=== PATIENT | female | born 1965 | race Caucasian/White ===

== ENCOUNTER → 2017-01-16 | Outpatient (CLI) | payer BC ==
--- NOTE | 2017-01-17 14:23 | MM ---
Reason for exam: screening (asymptomatic). Last mammogram was performed 1 year and 6 months ago. History: Patient is nulliparous. Family history of premenopausal breast cancer in mother at age 32. Implants in both breasts, 2013. Physical Findings: A clinical breast exam by your physician is recommended on an annual basis and results should be correlated with mammographic findings. MG Screening Mammo Implant/CAD Bilateral CC and MLO view(s) were taken. ID view(s) were taken of the left breast. Prior study comparison: July 08, 2015, bilateral MG screening mammo implant/CAD. July 06, 2014, bilateral MG screening mammo w CAD. June 05, 2012, bilateral digital screening mammo w/CAD. The breast tissue is heterogeneously dense. This may lower the sensitivity of mammography. Finding: There are typically benign skin calcifications in the lower inner quadrant of the left breast. No significant changes in finding since July 08, 2015, July 06, 2014, and June 05, 2012. ASSESSMENT: Benign, BI-RAD 2 RECOMMENDATION: Routine screening mammogram of both breasts in 1 year.
== END ==
LOC: RADMAMWWP 06:53
PROVIDERS: ATTEND Obstetrics & Gynecology
DX: Z12.31 Encounter for screening mammogram for malignant neoplasm of breast (principal)

== ENCOUNTER → 2018-03-06 | Outpatient (CLI) | payer BC ==
--- NOTE | 2018-03-10 08:27 | MM ---
Reason for exam: screening (asymptomatic). Last mammogram was performed 1 year and 2 months ago. History: Patient history of other cancer and is nulliparous. Family history of premenopausal breast cancer in mother at age 32. Implants in both breasts, 2013. Physical Findings: A clinical breast exam by your physician is recommended on an annual basis and results should be correlated with mammographic findings. MG 3D Screen Mammo Imp/Cad Bilateral CC, MLO, and ID view(s) were taken. Prior study comparison: January 16, 2017, bilateral MG screening mammo implant/CAD. July 08, 2015, bilateral MG screening mammo implant/CAD. The breast tissue is heterogeneously dense. This may lower the sensitivity of mammography. Finding: There is a 11 mm circumscribed oval mass in the outer quadrant, middle position of the right breast. There is a chronic nodularity in the left breast. Subpectoral implants x 2. New finding since January 16, 2017 and July 08, 2015. ASSESSMENT: Incomplete: need additional imaging evaluation, BI-RAD 0 RECOMMENDATION: Ultrasound of the right breast. [facility] will attempt to contact patient to return for ultrasound.
== END | disposition home or self-care (01) ==
LOC: RADMAMWWP 07:30
PROVIDERS: ATTEND Obstetrics & Gynecology
DX: Z12.31 Encounter for screening mammogram for malignant neoplasm of breast (principal)
CPT/HCPCS: 77063; 77067

== ENCOUNTER → 2018-03-13 | Outpatient (CLI) | payer BC ==
--- NOTE | 2018-03-13 08:11 | USB ---
Reason for exam: additional evaluation requested from abnormal screening. History: Patient history of other cancer and is nulliparous. Family history of premenopausal breast cancer in mother at age 32. Implants in both breasts, 2013. Physical Findings: Nurse did not find any significant physical abnormalities on exam. US Breast Workup Limited RT Right limited breast ultrasound including focal area of concern, retroareolar and axilla demonstrates a 1.2 x 0.4 x 1.1cm oval, cystic lesion at 9 o'clock and a 1.0 x 0.9 x 0.5cm mixed cluster at 10 o'clock. These results were verbally communicated with the patient and result sheet given to the patient on 03/13/18. ASSESSMENT: Benign, BI-RAD 2 RECOMMENDATION: Return to routine screening mammogram schedule for both breasts.
== END | disposition home or self-care (01) ==
LOC: RADUSWWP 06:43
PROVIDERS: ATTEND Obstetrics & Gynecology
DX: R92.2 Inconclusive mammogram (principal)

== ENCOUNTER → 2019-05-11 | Outpatient (CLI) | payer BC ==
--- NOTE | 2019-05-12 15:24 | MM ---
Reason for exam: screening (asymptomatic). Last mammogram was performed 1 year and 2 months ago. History: Patient history of other cancer and is nulliparous. Family history of premenopausal breast cancer in mother at age 32. Patient had thyroid cancer. Implants in both breasts, 2012. Took hormonal contraceptives for 15 years. Physical Findings: A clinical breast exam by your physician is recommended on an annual basis and results should be correlated with mammographic findings. MG 3D Screen Mammo Imp/Cad Bilateral CC and MLO view(s) were taken. Prior study comparison: March 06, 2018, bilateral MG 3d screen mammo imp/cad. January 16, 2017, bilateral MG screening mammo implant/CAD. The breast tissue is heterogeneously dense. This may lower the sensitivity of mammography. There is a stable right upper outer quadrant middle depth mass that was worked up in 2018 with us and is known to be a cyst. Bilateral retropecteral silicon implants are noted. ASSESSMENT: Benign, BI-RAD 2 RECOMMENDATION: Routine screening mammogram of both breasts in 1 year.
== END | disposition home or self-care (01) ==
LOC: RADMAMWWP 06:57
PROVIDERS: ATTEND Obstetrics & Gynecology
DX: Z12.31 Encounter for screening mammogram for malignant neoplasm of breast (principal); Z80.3 Family history of malignant neoplasm of breast
CPT/HCPCS: 77063; 77067

== ENCOUNTER 2021-06-01 15:50 | Emergency (ER) | payer BC ==
[2021-06-01] MEDS ORDERED: KETOROLAC 15 MG/ML 1 ML VIAL IM STA (16:33)
--- NOTE | 2021-06-01 17:08 | ED ---
Abdominal Pain HPI - General Chief Complaint: Abdominal Pain Stated Complaint: Hernia Time Seen by Provider: 06/01/21 16:10 Source: patient Mode of arrival: ambulatory Limitations: no limitations - History of Present Illness Initial Comments: 56-year-old female presents to emergency Department with a chief complaint of a hernia. Patient reports is an umbilical hernia which she has had for over a year. Patient reports it was otherwise asymptomatic and she has been able to reduce it on her own. States now it is protruding since earlier today after she began to strain herself and she is not able to push it back. She denies any nausea vomiting diarrhea constipation. She reports tenderness when the region is palpated. Pain alleviated at rest. - Related Data Allergies Allergy/AdvReac Type Severity Reaction Status Date / Time No Known Allergies Allergy Verified 06/01/21 16:08 Review of Systems ROS Statement: Those systems with pertinent positive or pertinent negative responses have been documented in the HPI. ROS Other: All systems not noted in ROS Statement are negative. Past Medical History Past Medical History: Cancer Additional Past Medical History / Comment(s): thryroid cancer History of Any Multi-Drug Resistant Organisms: None Reported Additional Past Surgical History / Comment(s): cancer removal cervix Smoking Status: Current every day smoker Past Alcohol Use History: None Reported Past Drug Use History: None Reported General Exam Limitations: no limitations General appearance: alert, in no apparent distress Head exam: Present: atraumatic, normocephalic, normal inspection Eye exam: Present: normal appearance, PERRL, EOMI Pupils: Present: normal accommodation ENT exam: Present: normal exam, normal oropharynx, mucous membranes moist, TM's normal bilaterally, normal external ear exam Neck exam: Present: normal inspection, full ROM Respiratory exam: Present: normal lung sounds bilaterally. Absent: respiratory distress Cardiovascular Exam: Present: regular rate, normal rhythm, normal heart sounds. Absent: systolic murmur GI/Abdominal exam: Present: soft, tenderness (Umbilical hernia). Absent: distended, guarding, rebound, rigid Extremities exam: Present: normal inspection, full ROM, normal capillary refill. Absent: tenderness Back exam: Present: normal inspection, full ROM Neurological exam: Present: alert, oriented X3 Psychiatric exam: Present: normal affect, normal mood Skin exam: Present: warm, dry, intact, normal color Course Vital Signs 06/01/21 06/01/21 16:05 17:17 Temperature 98.4 F 98.2 F Pulse Rate 65 62 Respiratory 18 16 Rate Blood Pressure 141/81 136/78 O2 Sat by Pulse 98 97 Oximetry Medical Decision Making - Medical Decision Making 56-year-old female presents emergency Department with a chief complaint of an umbilical hernia. On physical examination, she has a small umbilical hernia. I applied ice compress, give her analgesics, placed the patient in Trendelenburg. I was able to reduce the hernia without difficulty. He does not have any nausea or vomiting diarrhea or constipation. She is passing gas. I gave her contact information for general surgeon. Case discussed with physician. Disposition Clinical Impression: Umbilical hernia Disposition: HOME SELF-CARE Condition: Stable Instructions (If sedation given, give patient instructions): Umbilical Hernia (ED) Additional Instructions: Follow-up with a general surgeon. Return to emergency department if symptoms worsen. Is patient prescribed a controlled substance at d/c from ED?: No Referrals: Filemon Orellana MD [Primary Care Provider] - 1-2 days Artie Corona MD [Medical Doctor] - 1-2 days Time of Disposition: 17:07
[2021-06-01 17:18] VITALS: BP 136/78; PULSE 62; RESP 16; TEMP 98.2
== END 2021-06-01 17:17 | disposition home or self-care (01) ==
LOC: EC 15:50
DX: K42.9 Umbilical hernia without obstruction or gangrene (principal); F17.200 Nicotine dependence, unspecified, uncomplicated
CPT/HCPCS: 99283; 96372; J1885

== ENCOUNTER → 2021-07-18 | Outpatient (CLI) | payer BC ==
[2021-07-18 23:12] LABS: Basophils # (A) 0.06 X 10*3/uL (0.00-0.10); Basophils % (A) 0.7 %; Eosinophils # (A) 0.01 X 10*3/uL (0.04-0.35); Eosinophils % (A) 0.1 %; HCT 43.5 % (37.2-46.3); HGB 14.2 g/dL (12.0-15.0); Lymphocytes # (A) 1.85 X 10*3/uL (0.90-5.00); Lymphocytes % (A) 20.6 %; MCH 33.6 pg (27.0-32.0); MCHC 32.6 g/dL (32.0-37.0); MCV 102.8 fL (80.0-97.0); Mean Platelet Volume 10.6 fL (9.5-12.2); Monocytes # (A) 0.64 X 10*3/uL (0.20-1.00); Monocytes % (A) 7.1 %; Neutrophils % (A) 71.3 %; Platelet Count 263 X 10*3/uL (140-440); RBC 4.23 X 10*6/uL (4.10-5.20); RDW 13.1 % (11.5-14.5); WBC 8.98 X 10*3/uL (4.50-10.00)
== END | disposition home or self-care (01) ==
LOC: LABWHC1 15:55
PROVIDERS: ATTEND Obstetrics & Gynecology
DX: Z01.812 Encounter for preprocedural laboratory examination (principal); N87.1 Moderate cervical dysplasia
CPT/HCPCS: 36415; 85025

== ENCOUNTER 2021-07-25 08:29 | Day surgery (SDC) | payer BC ==
[2021-07-21 09:51] VITALS: BMI 27.3
--- NOTE | 2021-07-24 11:47 | HP ---
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 Cervical biopsies were done for history of abnormal Pap smear. She is scheduled to undergo cervical cold knife cone biopsy on 07/25/2021. ALLERGIES: ASPIRIN. MEDICATIONS: 1. Ibuprofen 800 mg p.r.n. 2. Synthroid 200 mcg daily. 3. Zoloft 150 mg daily. PAST MEDICAL HISTORY: History of abnormal Pap smear, anxiety, irritable bowel syndrome, osteoarthritis, thyroid cancer, vulvar cancer. PAST SURGICAL HISTORY: Bilateral breast augmentation in 2012, hysteroscopy, NovaSure ablation 2008, laser ablation of vulvar cancer 2008, thyroidectomy 2005, tubal ligation 2008. SOCIAL HISTORY: She is single. She smokes one pack of cigarettes per day. FAMILY HISTORY: Breast cancer in her mother. REVIEW OF SYSTEMS: Negative for fevers, chills, nausea, vomiting, headaches, visual changes, abdominal pain, bowel changes, dysuria, hematuria. Positive for irregular menses, depression and anxiety. PHYSICAL EXAMINATION: This is a pleasant female appearing her stated age. HEENT exam is unremarkable. She is status post thyroidectomy. No thyroid abnormalities palpable. The lungs are clear to auscultation bilaterally and her heart is of regular rate and rhythm. On breast exam, she has no palpable lesions or axillary lymphadenopathy. The abdomen is slim, soft and nontender with no rebound and no guarding. On pelvic examination, she has normal female external genitalia without lesions or irritation. On speculum examination, the cervix appears grossly normal with no visible lesions. On bimanual examination, the uterus is small, freely mobile and in the midline with no adnexal abnormalities palpable. ASSESSMENT: [id number]-old woman with high-grade LUCIUS on recent cervical biopsies. She is scheduled to undergo cervical cold knife cone biopsy for both diagnosis and treatment. This procedure, anticipated recovery and risks have been reviewed with the patient in the office. Risks include but are not limited to bleeding, transfusion, infection, injury to bowel, bladder, uterus or other structures. There can be incomplete resection of the tissue abnormality. The patient understands these risks and consent is obtained. She is scheduled for cervical cold knife cone biopsy on 07/25/2021. MMODL / IJN: [id number] /
[~2021-07-25 08:29] MED LIST: DEXAMETHASONE SOD PHOSPHATE 4 MG/ML 1 ML VIAL IV ONE; HYDROmorphone 0.5 MG/0.5 ML SYRINGE IVP PRN; LACTATED RINGERS 1,000 ML IV SCH; MIDAZOLAM 2 MG/2 ML VIAL IV PRN; ONDANSETRON 4 MG/2 ML VIAL IVP ONE; Pre Op ABX Message 1 EACH MISC MISCELLANE ONE; SCOPOLAMINE 1.5MG/72HR PATCH TRANSDERM ONE
[2021-07-25] MEDS ORDERED: LIDOCAINE 1% (10MG/ML) FOR IV START INTRADERMA ONE (09:12)
[2021-07-25] MEDS ORDERED: PROPOFOL 10 MG/ML 20 ML VIAL IV ONE (09:30)
[2021-07-25] MEDS ORDERED: KETOROLAC 15 MG/ML 1 ML VIAL ONE (09:30)
[2021-07-25] MEDS ORDERED: fentaNYL (PF) 50 MCG/ML 2 ML AMP ONE (09:30)
[2021-07-25] MEDS ORDERED: MIDAZOLAM 2 MG/2 ML VIAL ONE (09:30)
[2021-07-25] MEDS ORDERED: LIDOCAINE 1% INJ 10MG/ML (20 ML MDV) ONE (09:30)
[2021-07-25] MEDS ORDERED: FERRIC SUBSULFATE (MONSELS) JAR TOPICAL ONE (09:51)
[2021-07-25] MEDS ORDERED: IODINE/POTASS IOD (LUGOLS) BOTTLE TOPICAL ONE (09:52)
[2021-07-25] MEDS ORDERED: LIDOCAINE 1%-EPI 1:100,000 20 ML VIAL SUBMUCOSAL ONE (09:52)
[2021-07-25 10:19] VITALS: TEMP 97.2
--- NOTE | 2021-07-25 10:39 | P.OP ---
Date of Procedure: 07/25/21 Preoperative Diagnosis: DEEPAK-2 Postoperative Diagnosis: DEEPAK-2 Procedure(s) Performed: Cervical cold knife cone biopsy Anesthesia: MAC Surgeon: Anushka Eagle Estimated Blood Loss (ml): 5 IV fluids (ml): 400 Urine output (ml): 25 Pathology: other (Cervical cone biopsy) Condition: stable Disposition: PACU Indications for Procedure: Persistent DEEPAK-2 Operative Findings: Grossly normal-appearing cervix with no visible lesions. Description of Procedure: After the patient was met in the preoperative holding area and all questions were answered she was taken to the operating room where anesthetic was administered without incident. She was in positioned, prepped and draped in the dorsal lithotomy position. Bladder was drained for 25 mL of clear urine. Weighted speculum was placed in the vagina and the cervix was visualized. Cervix was grasped anteriorly with a single-tooth tenaculum. Paracervical block with lidocaine plus epinephrine was placed. Stay sutures with 0 Vicryl were placed at the 3 and 9 o'clock position. Lugol solution was applied to the cervix to delineate the transformation zone. 11 blade scalpel was utilized to circumferentially incise the cervix lateral to the transformation zone. This was to a depth of 1 cm. Specimen was grasped with an Allis clamp and placed on traction and the specimen was then amputated at the base and a coned inward fashion. Specimen was passed off. Minimal bleeding was noted. Ball electrocautery was utilized to cauterize the edges of the biopsy site as well as scant bleeding at the base of the biopsy. Surgicel powder was then placed in the base of the biopsy. Area was observed for several minutes and no active bleeding was noted. Stay sutures were removed. Speculum was removed. All counts reported to me as correct. The patient was awoken from anesthetic and transported to the recovery room in good condition.
[2021-07-25 12:05] VITALS: BP 127/82; PULSE 66; RESP 16
== END 2021-07-25 12:31 | disposition home or self-care (01) ==
LOC: OR 08:29
PROVIDERS: ATTEND Obstetrics & Gynecology
DX: F17.210 Nicotine dependence, cigarettes, uncomplicated (principal); M19.90 Unspecified osteoarthritis, unspecified site; K21.9 Gastro-esophageal reflux disease without esophagitis; E07.9 Disorder of thyroid, unspecified; Z85.41 Personal history of malignant neoplasm of cervix uteri; Z79.890 Hormone replacement therapy; Z79.899 Other long term (current) drug therapy
CPT/HCPCS: 81025; 88307; 57520; J2250; J1100; J2405; J2001; J3010; J1885; J2704

== ENCOUNTER → 2021-08-23 | Outpatient (CLI) | payer BC ==
--- NOTE | 2021-08-24 09:42 | MM ---
Reason for exam: screening (asymptomatic). Last mammogram was performed 2 years and 3 months ago. History: Patient has history of endometrial cancer at age 31, has history of other cancer at age 26, and is nulliparous. Family history of premenopausal breast cancer in mother at age 32. Implants in both breasts, 2013. Took hormonal contraceptives for 15 years. Physical Findings: A clinical breast exam by your physician is recommended on an annual basis and results should be correlated with mammographic findings. MG 3D Screen Mammo Imp/Cad Bilateral CC, MLO, and ID view(s) were taken. Prior study comparison: May 11, 2019, bilateral MG 3d screen mammo imp/cad. March 06, 2018, bilateral MG 3d screen mammo imp/cad. The breast tissue is heterogeneously dense. This may lower the sensitivity of mammography. Stable benign calcifications. There is no discrete abnormality. No significant changes when compared with prior studies. ASSESSMENT: Benign, BI-RAD 2 RECOMMENDATION: Routine screening mammogram of both breasts in 1 year.
== END | disposition home or self-care (01) ==
LOC: RADMAMWWP 15:04
PROVIDERS: ATTEND Obstetrics & Gynecology
DX: Z12.31 Encounter for screening mammogram for malignant neoplasm of breast (principal); Z80.3 Family history of malignant neoplasm of breast
CPT/HCPCS: 77063; 77067

== ENCOUNTER → 2022-12-11 | Outpatient (CLI) | payer BC ==
--- NOTE | 2022-12-13 09:19 | MM ---
Reason for Exam: Screening (asymptomatic). Last mammogram was performed 1 year(s) and 3 month(s) ago. Patient History: Menarche at age 13. Patient has no children. Left ovary removed at age 44. Other cancer, age 26. Endometrial cancer, age 31. Patient used Hormonal Contraceptives for 15 years. 2012, Bilateral Implants. Mother had breast cancer, age 32. Risk Values: Elly 5 year model risk: 2.4%. Prior Study Comparison: 03/06/2018 Bilateral Screening Mammogram, [facility]. 05/11/2019 Bilateral Screening Mammogram, [facility]. 08/23/2021 Bilateral Screening Mammogram, [facility]. Tissue Density: The breast tissue is heterogeneously dense. This may lower the sensitivity of mammography. Findings: Analyzed By CAD. Bilateral breast prostheses are present. On coronal tissue pattern appears symmetrical and stable. No significant interval changes are evident. No suspicious groups of microcalcifications, spiculated or lobular masses, architectural distortion or other secondary signs of malignancy are mammographically apparent. Overall Assessment: Benign, BI-RAD 2 Management: Screening Mammogram of both breasts in 1 year. A negative mammogram report should not preclude additional follow up of suspicious palpable abnormalities. Patient should continue monthly self breast exam. A clinical breast exam by your physician is recommended on an annual basis and results should be correlated with mammographic findings. Electronically signed and approved by: Jarod Rayo D.O. Radiologis
== END | disposition home or self-care (01) ==
LOC: RADMAMWWP 15:37
PROVIDERS: ATTEND Obstetrics & Gynecology
DX: Z12.31 Encounter for screening mammogram for malignant neoplasm of breast (principal); Z80.3 Family history of malignant neoplasm of breast
CPT/HCPCS: 77063; 77067

== ENCOUNTER → 2024-01-20 | Outpatient (CLI) | payer BC ==
--- NOTE | 2024-01-22 18:06 | MM ---
Reason for Exam: Screening (asymptomatic). Last mammogram was performed 1 year(s) and 2 month(s) ago. Patient History: Menarche at age 13. Patient has no children. Left ovary removed at age 44. Right ovary removed at age 58. Hysterectomy at age 58. Other cancer, age 26. Endometrial cancer, age 31. Patient used Hormonal Contraceptives for 15 years. 2012, Bilateral Implants. Mother had breast cancer, age 32. Risk Values: Elly 5 year model risk: 2.5%. NCI Lifetime model risk: 14.9%. Prior Study Comparison: 05/11/2019 Bilateral Screening Mammogram, [facility]. 08/23/2021 Bilateral Screening Mammogram, [facility]. 12/11/2022 Bilateral MG 3D screen mammo imp/cad., [facility]. Tissue Density: The breasts are heterogeneously dense, which may obscure small masses. Findings: Analyzed By CAD. Retropectoral bilateral silicone implants. Areas of asymmetric density are unchanged. Regional calcifications medial left breast are also unchanged. There is no suspicious group of microcalcifications or new suspicious mass in either breast. Overall Assessment: Benign, BI-RAD 2 Management: Screening Mammogram of both breasts in 1 year. . Patient should continue monthly self-breast exams. A clinical breast exam by your physician is recommended on an annual basis. This exam should not preclude additional follow-up of suspicious palpable abnormalities. Note on Elly scores and lifetime risk: 1. A Elly score greater than 3% is considered moderate risk. If this is the case, consider specialist referral to assess eligibility for a risk reducing agent. 2. If overall lifetime risk for the development of breast cancer is 20% or higher, the patient may qualify for future screening with alternating mammogram and breast MRI. Electronically signed and approved by: Joann Armando M.D. Radiologist
== END | disposition home or self-care (01) ==
LOC: RADMAMWWP 15:26
PROVIDERS: ATTEND Obstetrics & Gynecology
DX: Z12.31 Encounter for screening mammogram for malignant neoplasm of breast (principal); Z80.3 Family history of malignant neoplasm of breast
CPT/HCPCS: 77067

== ENCOUNTER 2024-09-21 08:58 | Emergency (ER) | payer BC ==
--- NOTE | 2024-09-21 09:13 | ED ---
Abdominal Pain HPI - General Source: patient, RN notes reviewed Mode of arrival: ambulatory Limitations: no limitations <Marietta Ariza - Last Filed: 09/21/24 09:12> - General Source: patient, RN notes reviewed Mode of arrival: ambulatory Limitations: no limitations <Blaze Paige - Last Filed: 09/22/24 20:50> - General Stated Complaint: Abdominal Pain Time Seen by Provider: 09/21/24 09:12 - History of Present Illness Initial Comments: 59-year-old female presenting to the ER for evaluation of abdominal pain. Patient states for the past month she has been having a gnawing right lower abdominal pain. She admits to recent diarrhea. Denies any nausea, vomiting, urinary complaints, vaginal bleeding or fevers. Patient denies any history of bowel surgeries or resections. (Marietta Ariza) 59-year-old female presents emergency Telugu complaint of right flank pain, right upper quadrant pain. Patient states that she has had minimal nausea without vomiting no urinary symptoms patient denies chest pain shortness of breath. (Blaze Paige) - Related Data Home Medications Medication Instructions Recorded Confirmed Levothyroxine Sodium [Synthroid] 200 mcg PO MOTUTHFRSA 07/21/21 07/25/21 Levothyroxine Sodium [Synthroid] 300 mcg PO SUWE 07/21/21 07/25/21 Multivitamins, Thera [Multivitamin 1 tab PO DAILY 07/21/21 07/25/21 (formulary)] Omeprazole [PriLOSEC] 10 mg PO QAM 07/21/21 07/25/21 Sertraline HCl [Zoloft] 100 mg PO QAM 07/21/21 07/25/21 Previous Rx's Medication Instructions Recorded Ketorolac [Toradol] 10 mg PO Q8HR #15 tab 09/21/24 Ondansetron Odt [Zofran Odt] 4 mg PO Q8HR PRN #10 tab 09/21/24 Allergies Allergy/AdvReac Type Severity Reaction Status Date / Time No Known Allergies Allergy Verified 09/21/24 09:53 Review of Systems ROS Other: All systems not noted in ROS Statement are negative. <Marietta Ariza - Last Filed: 09/21/24 09:12> ROS Other: All systems not noted in ROS Statement are negative. <Blaze Paige - Last Filed: 09/22/24 20:50> ROS Statement: Those systems with pertinent positive or pertinent negative responses have been documented in the HPI. Past Medical History Past Medical History: Cancer, GERD/Reflux, Osteoarthritis (OA) Additional Past Medical History / Comment(s): Hx Thryroid Cancer 2006. Hx Cervical Cancer. History of Any Multi-Drug Resistant Organisms: None Reported Additional Past Surgical History / Comment(s): Cancer removal from cervix, thyroidectomy. Past Anesthesia/Blood Transfusion Reactions: No Reported Reaction, Postoperative Nausea & Vomiting (PONV) Past Psychological History: Anxiety Smoking Status: Current every day smoker Past Alcohol Use History: Rare Additional Past Alcohol Use History / Comment(s): Has been smoking for 30 years, 1 PPD. Past Drug Use History: None Reported - Past Family History Mother Family Medical History: No Reported History <Marietta Ariza - Last Filed: 09/21/24 09:12> General Exam <Marietta Ariza - Last Filed: 09/21/24 09:12> Limitations: no limitations General appearance: alert, in no apparent distress Head exam: Present: atraumatic, normocephalic, normal inspection Eye exam: Present: normal appearance, PERRL, EOMI. Absent: scleral icterus, conjunctival injection, periorbital swelling ENT exam: Present: normal exam, normal oropharynx, mucous membranes moist Neck exam: Present: normal inspection, full ROM. Absent: tenderness, meningismus, lymphadenopathy Respiratory exam: Present: normal lung sounds bilaterally. Absent: respiratory distress, wheezes, rales, rhonchi, stridor Cardiovascular Exam: Present: regular rate, normal rhythm, normal heart sounds. Absent: systolic murmur, diastolic murmur, rubs, gallop, clicks GI/Abdominal exam: Present: soft, normal bowel sounds. Absent: distended, tenderness, guarding, rebound, rigid <Blaze Paige - Last Filed: 09/22/24 20:50> - General Exam Comments Initial Comments: Visual Physical Exam Vital signs reviewed General: Well-appearing, nontoxic, no acute distress. Head: Normocephalic, atraumatic Eyes: PERRLA, EOMI ENT: Airway patent Chest: Nonlabored breathing Skin: No visual rash, normal skin tone Neuro: Alert and oriented 3 Musculoskeletal: No gross abnormalities (Marietta Ariza) Course Vital Signs 09/21/24 09:51 Temperature 98.0 F Pulse Rate 56 L Respiratory 22 Rate Blood Pressure 135/70 O2 Sat by Pulse 98 Oximetry Medical Decision Making <Marietta Ariza - Last Filed: 09/21/24 09:12> - Lab Data Result diagrams: 09/21/24 10:26 09/21/24 10:26 <Blaze Paige - Last Filed: 09/22/24 20:50> - Medical Decision Making I performed the quick note portion of this chart. Electronically signed by Marietta Ariza PA-C (Marietta Ariza) Was pt. sent in by a medical professional or institution (RENETTA Castillo, SINTERING PRESS OPERATOR, urgent care, hospital, or skilled nursing...) When possible be specific @ -No Did you speak to anyone other than the patient for history (EMS, parent, family, police, friend...)? What history was obtained from this source @ -No Did you review nursing and triage notes (agree or disagree)? Why? @ -I reviewed and agree with nursing and triage notes Were old charts reviewed (outside hosp., previous admission, EMS record, old EKG, old radiological studies, urgent care reports/EKG's, skilled nursing records)? Report findings @ -No old charts were reviewed Differential Diagnosis (chest pain, altered mental status, abdominal pain women, abdominal pain men, vaginal bleeding, weakness, fever, dyspnea, syncope, headache, dizziness, GI bleed, back pain, seizure, CVA, palpatations, mental health, musculoskeletal)? @ -Differential Abdominal Pain Women: Appendicitis, Cholecystitis, diverticulosis, ischemic bowel, pancreatitis, hepatitis, UTI, gastroenteritis, AAA, incarcerated hernia, bowel obstruction, constipation, inflammatory bowel, hepatitis, peptic ulcer disease, splenic infarction, perforated viscus, vulvitis, ovarian torsion, PID, kidney stone, placenta abruption, this is not meant to be an all-inclusive list EKG interpreted by me (3pts min.). @ -None X-rays interpreted by me (1pt min.). @ -None done CT interpreted by me (1pt min.). @ -CT abdomen pelvis showing large 1.8 cm renal pelvic stone U/S interpreted by me (1pt. min.). @ -Ultrasound shows evidence of gallstone in the fundus What testing was considered but not performed or refused? (CT, X-rays, U/S, labs)? Why? @ -None What meds were considered but not given or refused? Why? @ -None Did you discuss the management of the patient with other professionals (amirah fernando i.e. , PA, SINTERING PRESS OPERATOR, lab, RT, psych nurse, manager social media, copy center operator, teacher, credit compliance officer, casey saw operator)? Give summary @ -[Dr. sims on-call urology who discussed with the patient regarding outpat ient treatment Was smoking cessation discussed for >3mins.? @ -No Was critical care preformed (if so, how long)? @ -No Were there social determinants of health that impacted care today? How? (Homelessness, low income, unemployed, alcoholism, drug addiction, transportation, low edu. Level, literacy, decrease access to med. care, long term, rehab)? @ -No Was there de-escalation of care discussed even if they declined (Discuss DNR or withdrawal of care, Hospice)? DNR status @ -No What co-morbidities impacted this encounter? (DM, HTN, Smoking, COPD, CAD, Cancer, CVA, ARF, Chemo, Hep., AIDS, mental health diagnosis, sleep apnea, morbid obesity)? @ -None Was patient admitted / discharged? Hospital course, mention meds given and route, prescriptions, significant lab abnormalities, going to OR and other pertinent info. @ -Discharge patient will follow-up with Dr. Nuñez urologist to discuss outpatient percutaneous removal. Patient is discharged in stable condition return parameters paula. Undiagnosed new problem with uncertain prognosis? @ -No Drug Therapy requiring intensive monitoring for toxicity (Heparin, Nitro, Insulin, Cardizem)? @ -No Were any procedures done? @ -No Diagnosis/symptom? @ -Kidney stone, gallstone Acute, or Chronic, or Acute on Chronic? @ -Acute Uncomplicated (without systemic symptoms) or Complicated (systemic symptoms)? @ -Complicated Side effects of treatment? @ -No Exacerbation, Progression, or Severe Exacerbation? @ -No Poses a threat to life or bodily function? How? (Chest pain, USA, ND, pneumonia, PE, COPD, DKA, ARF, appy, cholecystitis, CVA, Diverticulitis, Homicidal, Suicidal, threat to staff... and all critical care pts) @ -No (Blaze Paige) - Lab Data Lab Results 09/21/24 09/21/24 09/21/24 Range/Units 10:26 10:26 10:26 WBC 10.1 (3.8-10.6) k/uL RBC 4.70 (3.80-5.40) m/uL Hgb 14.8 (11.4-16.0) gm/dL Hct 45.2 (34.0-46.0) % MCV 96.2 (80.0-100.0) fL MCH 31.5 (25.0-35.0) pg MCHC 32.7 (31.0-37.0) g/dL RDW 13.1 (11.5-15.5) % Plt Count 211 (150-450) k/uL MPV 7.7 Neutrophils % 84 % Lymphocytes % 11 % Monocytes % 3 % Eosinophils % 1 % Basophils % 0 % Neutrophils # 8.5 H (1.3-7.7) k/uL Lymphocytes # 1.1 (1.0-4.8) k/uL Monocytes # 0.3 (0-1.0) k/uL Eosinophils # 0.1 (0-0.7) k/uL Basophils # 0.0 (0-0.2) k/uL Sodium 141 (137-145) mmol/L Potassium 4.4 (3.5-5.1) mmol/L Chloride 105 (98-107) mmol/L Carbon Dioxide 28 (22-30) mmol/L Anion Gap 8 mmol/L BUN 11 (7-17) mg/dL Creatinine 0.74 (0.52-1.04) mg/dL Est GFR (CKD-EPI)AfAm >90 (>60 ml/min/1.73 sqM) Est GFR (CKD-EPI)NonAf >90 (>60 ml/min/1.73 sqM) Glucose 121 H (74-99) mg/dL Plasma Lactic Acid Sam 1.0 (0.7-2.0) mmol/L Calcium 9.1 (8.4-10.2) mg/dL Total Bilirubin 0.6 (0.2-1.3) mg/dL AST 20 (14-36) U/L ALT 20 (4-34) U/L Alkaline Phosphatase 114 (38-126) U/L Total Protein 6.9 (6.3-8.2) g/dL Albumin 4.5 (3.5-5.0) g/dL Amylase 55 (30-110) U/L Lipase 143 (23-300) U/L Urine Color Urine Appearance (Clear) Urine pH (5.0-8.0) Ur Specific [place] (1.001-1.035) Urine Protein (Negative) Urine Glucose (UA) (Negative) Urine Ketones (Negative) Urine Blood (Negative) Urine Nitrite (Negative) Urine Bilirubin (Negative) Urine Urobilinogen (<2.0) mg/dL Ur Leukocyte Esterase (Negative) Urine RBC (0-5) /hpf Urine WBC (0-5) /hpf Ur Squamous Epith Cells (0-4) /hpf Urine Mucus (None) /hpf 09/21/24 Range/Units 10:57 WBC (3.8-10.6) k/uL RBC (3.80-5.40) m/uL Hgb (11.4-16.0) gm/dL Hct (34.0-46.0) % MCV (80.0-100.0) fL MCH (25.0-35.0) pg MCHC (31.0-37.0) g/dL RDW (11.5-15.5) % Plt Count (150-450) k/uL MPV Neutrophils % % Lymphocytes % % Monocytes % % Eosinophils % % Basophils % % Neutrophils # (1.3-7.7) k/uL Lymphocytes # (1.0-4.8) k/uL Monocytes # (0-1.0) k/uL Eosinophils # (0-0.7) k/uL Basophils # (0-0.2) k/uL Sodium (137-145) mmol/L Potassium (3.5-5.1) mmol/L Chloride (98-107) mmol/L Carbon Dioxide (22-30) mmol/L Anion Gap mmol/L BUN (7-17) mg/dL Creatinine (0.52-1.04) mg/dL Est GFR (CKD-EPI)AfAm (>60 ml/min/1.73 sqM) Est GFR (CKD-EPI)NonAf (>60 ml/min/1.73 sqM) Glucose (74-99) mg/dL Plasma Lactic Acid Sam (0.7-2.0) mmol/L Calcium (8.4-10.2) mg/dL Total Bilirubin (0.2-1.3) mg/dL AST (14-36) U/L ALT (4-34) U/L Alkaline Phosphatase (38-126) U/L Total Protein (6.3-8.2) g/dL Albumin (3.5-5.0) g/dL Amylase (30-110) U/L Lipase (23-300) U/L Urine Color Dark Brown Urine Appearance Turbid H (Clear) Urine pH 6.0 (5.0-8.0) Ur Specific [place] 1.032 (1.001-1.035) Urine Protein 2+ H (Negative) Urine Glucose (UA) Negative (Negative) Urine Ketones Trace H (Negative) Urine Blood Large H (Negative) Urine Nitrite Negative (Negative) Urine Bilirubin Negative (Negative) Urine Urobilinogen 3.0 (<2.0) mg/dL Ur Leukocyte Esterase Small H (Negative) Urine RBC >182 H (0-5) /hpf Urine WBC 19 H (0-5) /hpf Ur Squamous Epith Cells 20 H (0-4) /hpf Urine Mucus Many H (None) /hpf Disposition <Marietta Ariza - Last Filed: 09/21/24 09:12> Is patient prescribed a controlled substance at d/c from ED?: No Time of Disposition: 13:41 <Blaze Paige - Last Filed: 09/22/24 20:50> Clinical Impression: Kidney stone on right side, Gallstone Disposition: HOME SELF-CARE Condition: Stable Instructions (If sedation given, give patient instructions): Kidney Stones (ED) Additional Instructions: Please return to the Emergency Department if symptoms worsen or any other concerns. Prescriptions: Ketorolac [Toradol] 10 mg PO Q8HR #15 tab Ondansetron Odt [Zofran Odt] 4 mg PO Q8HR PRN #10 tab PRN Reason: Nausea Referrals: Filemon Orellana MD [Primary Care Provider] - 1-2 days Filemon Ramirez MD [STAFF PHYSICIAN] - 1-2 days
[2024-09-21 09:53] VITALS: BP 135/70; PULSE 56; RESP 22; TEMP 98
[2024-09-21 10:43] LABS: Basophils % (A) 0 %; Eosinophils # (A) 0.1 k/uL (0-0.7); Eosinophils % (A) 1 %; HCT 45.2 % (34.0-46.0); HGB 14.8 gm/dL (11.4-16.0); Lymphocytes # (A) 1.1 k/uL (1.0-4.8); Lymphocytes % (A) 11 %; MCH 31.5 pg (25.0-35.0); MCHC 32.7 g/dL (31.0-37.0); MCV 96.2 fL (80.0-100.0); Mean Platelet Volume 7.7; Monocytes # (A) 0.3 k/uL (0-1.0); Monocytes % (A) 3 %; Neutrophils # (A) 8.5 k/uL (1.3-7.7); Neutrophils % (A) 84 %; Platelet Count 211 k/uL (150-450); RDW 13.1 % (11.5-15.5); WBC 10.1 k/uL (3.8-10.6)
--- NOTE | 2024-09-21 11:03 | US ---
EXAMINATION TYPE: US gallbladder DATE OF EXAM: 09/21/2024 COMPARISON: CT(02/25/2015) CLINICAL INDICATION: Female, 59 years old with history of pain; TECHNIQUE: Grayscale and color Doppler imaging of the right upper quadrant. FINDINGS: EXAM MEASUREMENTS: Liver Length: 15.2 Gallbladder Wall: 0.2 cm CBD: 0.2, color Doppler imaging was utilized to isolate the common bile duct for measurement. Right Kidney: 11.3x5.2x6.4 Pancreas: Tail obscured by overlying bowel gas Liver: no abnormalities seen Gallbladder: 5 mm echogenic focus at the fundus of the gallbladder. No apparent shadowing. No abnorma l distention or wall thickening. Evidence for sonographic Grover's sign: No CBD: wnl Right Kidney: Large anechoic area seen (mid): 4.3x5.0x5.2cm Midpole echogenic focus: 0.9cm. No hydronephrosis. IMPRESSION: 1. A 5 mm nonshadowing stone, polyp, or tumefactive sludge at the fundus of the gallbladder. Recommen d 6 month follow-up ultrasound to reassess. No axillary imaging findings of acute cholecystitis. 2. No biliary ductal dilatation. 3. A 9 mm centrally located calculus right kidney. No hydronephrosis. 4. Incidental large 5.2 cm right renal cyst. [facility], , 09/21/2024 11:00 AM
[2024-09-21 11:06] LABS: ALT 20 U/L (4-34); AST 20 U/L (14-36); African American GFR (CKD) >90 (>60 ml/min/1.73 sqM); Albumin 4.5 g/dL (3.5-5.0); Alkaline Phosphatase 114 U/L (38-126); Amylase 55 U/L (30-110); Anion Gap 8 mmol/L; Blood Urea Nitrogen 11 mg/dL (7-17); Calcium 9.1 mg/dL (8.4-10.2); Carbon Dioxide 28 mmol/L (22-30); Chloride 105 mmol/L (98-107); Glucose 121 mg/dL (74-99); Lipase 143 U/L (23-300); Non-African American GFR(CKD) >90 (>60 ml/min/1.73 sqM); Potassium 4.4 mmol/L (3.5-5.1); Sodium 141 mmol/L (137-145); Total Bilirubin 0.6 mg/dL (0.2-1.3); Total Protein 6.9 g/dL (6.3-8.2)
[2024-09-21 11:49] LABS: Appearance,Urine Turbid (Clear); Bilirubin,Urine Negative (Negative); Blood,Urine Large (Negative); Color,Urine Dark Brown; Glucose,Urine (UA) Negative (Negative); Ketones,Urine Trace (Negative); Leukocyte Esterase,Urine Small (Negative); Mucus,Urine Many /hpf; Nitrite,Urine Negative (Negative); Protein,Urine 2+ (Negative); RBC,Urine >182 /hpf (0-5); Specific Gravity,Urine 1.032 (1.001-1.035); Squamous Epithelial Cell,Urine 20 /hpf (0-4); WBC,Urine 19 /hpf (0-5)
--- NOTE | 2024-09-21 13:09 | CT ---
EXAMINATION TYPE: CT abdomen pelvis wo con DATE OF EXAM: 09/21/2024 HISTORY: Rt flank pain CT DLP: 585.3 mGycm. Automated Exposure Control for Dose Reduction was Utilized. TECHNIQUE: CT scan of the abdomen and pelvis is performed without oral or IV contrast. COMPARISON: Prior CT 2014 FINDINGS: Within the limitations of a non-contrast study, the following observations are made. LUNG BASES: Partial visualization of bilateral breast implants. LIVER/GB: Calcified gallstone or stones near the gallbladder neck. Gallbladder somewhat contracted wi thout surrounding fluid or fat stranding. No biliary dilatation. PANCREAS: No significant abnormality is seen. SPLEEN: No significant abnormality is seen. ADRENALS: No significant abnormality is seen. KIDNEYS: No left-sided renal calculi or hydronephrosis. There is elongated 1.8 cm calculus in the rig ht renal pelvis axial image 55. There is a partially exophytic 4.6 cm simple cyst in the lateral aspe ct upper pole right kidney axial image 46. Mild right-sided hydronephrosis. No hydroureter or obstruc ting ureter calculus. Retroaortic left renal vein which is normal variant. BOWEL: Appendix within normal limits ascending from cecum medially. GENITAL ORGANS:. Uterus is surgically absent or atrophic in appearance. LYMPH NODES: No greater than 1cm abdominal or pelvic lymph nodes are appreciated. OSSEOUS STRUCTURES: No significant abnormality is seen. OTHER: A vertical oriented scar in the anterior midline of the lower abdomen and pelvis is seen. Mild calcified plaque in the ectatic abdominal aorta. Moderate-sized fat containing periumbilical hernia sagittal image 66 and small size right-sided periUmbilical hernia axial image 74. IMPRESSION: There is elongated 1.8 cm right pelvic renal calculus with mild right-sided hydronephrosi s. [facility], , 09/21/2024 1:07 PM
[2024-09-21] MEDS ORDERED: ACET/COD 300 MG/30 MG STARTER PACK 6 TAB BTL PO STA (13:41)
--- NOTE | 2024-09-21 13:48 | P.GSCN ---
History of Present Illness Consult date: 09/21/24 History of present illness: 59-year-old female who came to the emergency room because of intermittent back pain over the last month. She was evaluated and identified to have a large stone in the right renal pelvis, almost 2 cm. The patient was evaluated and found not to have an infection. We are asked see the patient. The patient's pain is colicky but not severe. It is intermittent. There may have been some blood in the urine. There is been no fever or chills. She may have had a stone years ago but never had it recovered. She does not have recurrent infections. She has no other major medical illnesses.She has had cervical and thyroid cancer. Review of Systems All systems: negative - Constitutional Denies fever, Denies weight loss - EENT Eyes: denies blurred vision Ears, nose, mouth and throat: Denies dysphagia - Cardiovascular Denies chest pain, Denies shortness of breath - Respiratory Denies cough, Denies 7 - Gastrointestinal Reports as per HPI - Genitourinary Genitourinary: Denies dysuria, Denies hematuria - Integumentary Denies rash, Denies unusual bruising - Neurological Denies headaches, Denies syncope - Hematologic/Lymphatic Denies easy bleeding, Denies easy bruising Past Medical History Past Medical History: Cancer, GERD/Reflux, Osteoarthritis (OA) Additional Past Medical History / Comment(s): Hx Thryroid Cancer 2005. Hx Cervical Cancer. History of Any Multi-Drug Resistant Organisms: None Reported Past Surgical History: Hysterectomy Additional Past Surgical History / Comment(s): Cancer removal from cervix, thyroidectomy. Past Anesthesia/Blood Transfusion Reactions: No Reported Reaction, Postoperative Nausea & Vomiting (PONV) Past Psychological History: No Psychological Hx Reported Smoking Status: Current every day smoker Past Alcohol Use History: Rare Past Drug Use History: None Reported - Past Family History Mother Family Medical History: No Reported History Medications and Allergies Home Medications Medication Instructions Recorded Confirmed Type Levothyroxine Sodium [Synthroid] 200 mcg PO MOTUTHFRSA 07/21/21 07/25/21 History Levothyroxine Sodium [Synthroid] 300 mcg PO SUWE 07/21/21 07/25/21 History Multivitamins, Thera [Multivitamin 1 tab PO DAILY 07/21/21 07/25/21 History (formulary)] Omeprazole [PriLOSEC] 10 mg PO QAM 07/21/21 07/25/21 History Sertraline HCl [Zoloft] 100 mg PO QAM 07/21/21 07/25/21 History Ketorolac [Toradol] 10 mg PO Q8HR #15 tab 09/21/24 Rx Ondansetron Odt [Zofran Odt] 4 mg PO Q8HR PRN #10 tab 09/21/24 Rx Allergies Allergy/AdvReac Type Severity Reaction Status Date / Time No Known Allergies Allergy Verified 09/21/24 09:53 Surgical - Exam Vital Signs Temp Pulse Resp BP Pulse Ox 98.0 F 56 L 22 135/70 98 09/21/24 09:51 09/21/24 09:51 09/21/24 09:51 09/21/24 09:51 09/21/24 09:51 - General well developed, well nourished, no distress - Eyes normal ocular movement, no icteric - ENT no hearing loss, no congestion - Neck no masses, trachea midline - Respiratory normal respiratory effort, clear to auscultation - Abdomen Abdomen: soft, non tender, no guarding, no rigid, no rebound - Integumentary no rash, no abnormal pigmentation - Neurologic no disoriented, no combative - Psychiatric oriented to time, oriented to person, oriented to place, speech is normal, memory intact Results - Labs 09/21/24 10:26 09/21/24 10:26 Abnormal Lab Results - Last 24 Hours (Table) 09/21/24 09/21/24 09/21/24 Range/Units 10:26 10:26 10:57 Neutrophils # 8.5 H (1.3-7.7) k/uL Glucose 121 H (74-99) mg/dL Urine Appearance Turbid H (Clear) Urine Protein 2+ H (Negative) Urine Ketones Trace H (Negative) Urine Blood Large H (Negative) Ur Leukocyte Esterase Small H (Negative) Urine RBC >182 H (0-5) /hpf Urine WBC 19 H (0-5) /hpf Ur Squamous Epith Cells 20 H (0-4) /hpf Urine Mucus Many H (None) /hpf Diabetes panel 09/21/24 Range/Units 10:26 Sodium 141 (137-145) mmol/L Potassium 4.4 (3.5-5.1) mmol/L Chloride 105 (98-107) mmol/L Carbon Dioxide 28 (22-30) mmol/L BUN 11 (7-17) mg/dL Creatinine 0.74 (0.52-1.04) mg/dL Glucose 121 H (74-99) mg/dL Calcium 9.1 (8.4-10.2) mg/dL AST 20 (14-36) U/L ALT 20 (4-34) U/L Alkaline Phosphatase 114 (38-126) U/L Total Protein 6.9 (6.3-8.2) g/dL Albumin 4.5 (3.5-5.0) g/dL Calcium panel 09/21/24 Range/Units 10:26 Calcium 9.1 (8.4-10.2) mg/dL Albumin 4.5 (3.5-5.0) g/dL Pituitary panel 09/21/24 Range/Units 10:26 Sodium 141 (137-145) mmol/L Potassium 4.4 (3.5-5.1) mmol/L Chloride 105 (98-107) mmol/L Carbon Dioxide 28 (22-30) mmol/L BUN 11 (7-17) mg/dL Creatinine 0.74 (0.52-1.04) mg/dL Glucose 121 H (74-99) mg/dL Calcium 9.1 (8.4-10.2) mg/dL Adrenal panel 09/21/24 Range/Units 10:26 Sodium 141 (137-145) mmol/L Potassium 4.4 (3.5-5.1) mmol/L Chloride 105 (98-107) mmol/L Carbon Dioxide 28 (22-30) mmol/L BUN 11 (7-17) mg/dL Creatinine 0.74 (0.52-1.04) mg/dL Glucose 121 H (74-99) mg/dL Calcium 9.1 (8.4-10.2) mg/dL Total Bilirubin 0.6 (0.2-1.3) mg/dL AST 20 (14-36) U/L ALT 20 (4-34) U/L Alkaline Phosphatase 114 (38-126) U/L Total Protein 6.9 (6.3-8.2) g/dL Albumin 4.5 (3.5-5.0) g/dL - Imaging CT scan - abdomen: report reviewed, image reviewed CT scan - pelvis: report reviewed, image reviewed Assessment and Plan Assessment: Impression: This patient has a large right renal pelvic stone (approximately 2 cm). It is causing intermittent discomfort. Recommendations: I had a lengthy discussion with the patient and her about treatment options including open surgery percutaneous surgery shockwave lithotripsy and ureteroscopy. Given the location and size of her stone I think she would benefit from procedures. I think the best procedure would be a pe rcutaneous nephrostolithotomy. The risks and complications have been outlined. I will set her up for this.
== END 2024-09-21 15:57 | disposition home or self-care (01) ==
LOC: EC 08:58
DX: N13.2 Hydronephrosis with renal and ureteral calculous obstruction (principal); K80.20 Calculus of gallbladder without cholecystitis without obstruction; F17.200 Nicotine dependence, unspecified, uncomplicated
CPT/HCPCS: 36415; 74176; 76705; 80053; 81001; 82150; 83605; 83690; 85025; 87086; 99284

== ENCOUNTER 2024-10-07 06:49 | Day surgery (SDC) | payer BC ==
[2024-10-05 09:22] VITALS: BMI 30.2
--- NOTE | 2024-10-06 12:43 | P.GSHP ---
History of Present Illness H&P Date: 10/06/24 Pleasant 59-year-old female who came to the emergency room in September because of flank pain. Found to have a large stone, 2 cm in the right renal pelvis. She did not have a urine infection. I have had 1 stone years ago. She has intermittent colic. She was not admitted to the hospital as we were able to control her pain. She is seen in follow-up and we discussed treatment options. Due to the size of the stone I recommended percutaneous nephrostolithotomy. Alternatives including shockwave lithotripsy and ureteroscopy were discussed. The risks and complications of the surgery include infection bleeding pain injury adjacent organs to access the kidney failure to remove all the stone ble eding have been explained understood and accepted she come for this procedure. - Constitutional Constitutional: Denies chills, Denies fever - EENT Eyes: denies blurred vision, denies pain Ears, nose, mouth and throat: Denies headache, Denies sore throat - Cardiovascular Cardiovascular: Denies chest pain, Denies shortness of breath - Respiratory Respiratory: Denies cough, Denies 7 - Gastrointestinal Gastrointestinal: Denies abdominal pain, Denies diarrhea, Denies nausea, Denies vomiting - Genitourinary (Female) Genitourinary: Denies dysuria, Denies hematuria - Genitourinary (Male) Genitourinary: Denies dysuria, Denies hematuria - Musculoskeletal Musculoskeletal: Denies myalgias - Integumentary Integumentary: Denies pruritus, Denies rash - Neurological Neurological: Denies numbness, Denies weakness - Psychiatric Psychiatric: Denies anxiety, Denies depression - Endocrine Endocrine: Denies fatigue, Denies weight change Past Medical History Past Medical History: Cancer, GERD/Reflux, Osteoarthritis (OA) Additional Past Medical History / Comment(s): kidney stones, Hx Thryroid Cancer 2005. Hx Cervical Cancer. History of Any Multi-Drug Resistant Organisms: None Reported Past Surgical History: Hysterectomy Additional Past Surgical History / Comment(s): total hyst,Cancer removal from cervix, thyroidectomy,cysts removed from ovaries Past Anesthesia/Blood Transfusion Reactions: Postoperative Nausea & Vomiting (PONV) Additional Past Anesthesia/Blood Transfusion Reaction / Comment(s): no hx blood transfusion Smoking Status: Current every day smoker - Past Family History Mother Family Medical History: Cancer Additional Family Medical History / Comment(s): breast CA Medications and Allergies Home Medications Medication Instructions Recorded Confirmed Type Levothyroxine Sodium [Synthroid] 175 mcg PO QAM 07/21/21 10/05/24 History Multivitamins, Thera [Multivitamin 1 tab PO DAILY 07/21/21 10/05/24 History (formulary)] Omeprazole [PriLOSEC] 10 mg PO QAM 07/21/21 10/05/24 History Sertraline HCl [Zoloft] 100 mg PO QAM 07/21/21 10/05/24 History Ketorolac [Toradol] 10 mg PO Q8HR #15 tab 09/21/24 10/05/24 Rx Ondansetron Odt [Zofran Odt] 4 mg PO Q8HR PRN #10 tab 09/21/24 10/05/24 Rx L.acidoph,Paracasei, B.lactis 1 tab PO DAILY 10/05/24 10/05/24 History [Probiotic] Progesterone, Micronized 200 mg PO HS 10/05/24 10/05/24 History [Progesterone] estradioL [estradioL (Once Weekly) 1 patch TRANSDERM WEEKLY 10/05/24 10/05/24 History 0.05 mg Patch] Allergies Allergy/AdvReac Type Severity Reaction Status Date / Time No Known Allergies Allergy Verified 10/05/24 09:00 Surgical - Exam - General well developed, well nourished, no distress - Eyes normal ocular movement, no icteric - ENT no hearing loss, no congestion - Neck no masses, trachea midline - Respiratory normal respiratory effort, clear to auscultation - Abdomen Abdomen: soft, non tender, no guarding, no rigid, no rebound - Integumentary no rash, no abnormal pigmentation - Neurologic no disoriented, no combative - Psychiatric oriented to time, oriented to person, oriented to place, speech is normal, memory intact Results - Imaging CT scan - abdomen: report reviewed, image reviewed CT scan - pelvis: report reviewed, image reviewed Assessment and Plan Assessment: Impression: Large right renal pelvic stone with colic Recommendations: Right percutaneous nephrostolithotomy
[~2024-10-07 06:49] MED LIST changes: -DEXAMETHASONE SOD PHOSPHATE 4 MG/ML 1 ML VIAL IV ONE; -HYDROmorphone 0.5 MG/0.5 ML SYRINGE IVP PRN; -LACTATED RINGERS 1,000 ML IV SCH; +LIDOCAINE 1% (10MG/ML) FOR IV START INTRADERMA PRN; -MIDAZOLAM 2 MG/2 ML VIAL IV PRN; -ONDANSETRON 4 MG/2 ML VIAL IVP ONE; -Pre Op ABX Message 1 EACH MISC MISCELLANE ONE; -SCOPOLAMINE 1.5MG/72HR PATCH TRANSDERM ONE
[2024-10-07] MEDS ORDERED: HYDROmorphone 0.5 MG/0.5 ML SYRINGE IVP PRN (07:00)
--- NOTE | 2024-10-07 07:12 | XR ---
EXAMINATION TYPE: XR KUB DATE OF EXAM: 10/07/2024 7:03 AM COMPARISON: None CLINICAL INDICATION: Female, 59 years old with history of N20.0 right renal stone; [facility] TECHNIQUE: One radiographic view of the abdomen was obtained. FINDINGS: The bowel gas pattern is nonspecific without dilated loops of small or large bowel. . Fecal material and gas are demonstrated throughout the colon and rectum. There is no evidence for organome jana or pneumoperitoneum. Degeneration changes of the spine. No acute osseous process. Right renal calculi measuring up to 22 mm. IMPRESSION: 1. Right renal 22 mm renal stone. 2. Nonspecific bowel gas pattern without radiographic evidence for acute process. [facility], , 10/07/2024 7:10 AM
[2024-10-07] MEDS: IV FLUID CONTINUATION 1,000 ML IV ONE ×2 (07:57→10:13)
[2024-10-07] MEDS: DEXAMETHASONE SOD PHOSPHATE 4 MG/ML 1 ML VIAL IV ONE (08:04)
[2024-10-07] MEDS: SCOPOLAMINE 1 MG/72 HR PATCH TRANSDERM STA (08:04)
[2024-10-07] MEDS: ONDANSETRON 4 MG/2 ML VIAL IVP ONE (08:04)
[2024-10-07] MEDS: LACTATED RINGERS 1,000 ML IV SCH (08:04)
[2024-10-07] MEDS ORDERED: SUCCINYLCHOLINE CHLORIDE 200 MG/10 ML VIAL IV ONE (08:43)
[2024-10-07] MEDS ORDERED: PROPOFOL 10 MG/ML 20 ML VIAL IV ONE (08:43)
[2024-10-07] MEDS ORDERED: ROCURONIUM 10 MG/ML (5 ML VIAL) IV ONE (08:43)
[2024-10-07] MEDS ORDERED: GLYCOPYRROLATE 0.2 MG/ML 2 ML VIAL ONE (08:43)
[2024-10-07] MEDS ORDERED: NEOSTIGMINE 1 MG/ML 10 ML VIAL ONE (08:43)
[2024-10-07] MEDS ORDERED: PHENYLEPHRINE-0.9% NACL SYG 1,000 MCG/10 ML SYRINGE ONE (08:43)
[2024-10-07] MEDS ORDERED: ePHEDrine 50 MG/ML 1 ML VIAL ONE (08:43)
[2024-10-07] MEDS ORDERED: HYDROmorphone (PF) 1 MG/ML ONE (08:43)
[2024-10-07] MEDS ORDERED: fentaNYL (PF) 50 MCG/ML 2 ML AMP ONE (08:43)
[2024-10-07] MEDS ORDERED: LIDOCAINE 1% INJ 10MG/ML (20 ML MDV) ONE (08:43)
[2024-10-07] MEDS ORDERED: MIDAZOLAM 2 MG/2 ML VIAL ONE (08:43)
[2024-10-07] MEDS: IOPAMIDOL-370 100ML BTL MISCELLANE ONE (08:59)
[2024-10-07] MEDS ORDERED: ONDANSETRON ODT 4 MG TAB PO PRN (10:35)
[2024-10-07] MEDS ORDERED: MAG HYDROX/AL HYDROX/SIMETH 30 ML CUP PO PRN (10:36)
[2024-10-07] MEDS ORDERED: ACETAMINOPHEN TAB 325 MG TAB PO PRN (10:36)
--- NOTE | 2024-10-07 10:36 | FL ---
EXAMINATION TYPE: FL Perc Nephrostomy New Access DATE OF EXAM: 10/07/2024 10:22 AM COMPARISON: Pre Operative Images if available both CT/MRI or plain film CLINICAL INDICATION: Female, 59 years old with history of PERC NEPHRO RT RENAL STONE; TECHNIQUE: FL Perc Nephrostomy New Access, multiple fluoroscopic images provided for procedure. Total fluoroscopy time: 15 min 5 seconds Total submitted images to PACS: 3 DAP: Not recorded mGym2 Gycm2 uGym2 cGycm2 or equivalent. FINDINGS: Operative imaging for percutaneous nephrostomy tube placement. IMPRESSION: 1. No evidence for intraoperative complication. 2. Please see the operative/procedural note for further details. [facility], , 10/07/2024 10:34 AM
--- NOTE | 2024-10-07 10:40 | P.OP ---
Date of Procedure: 10/07/24 Preoperative Diagnosis: Right renal stone large Postoperative Diagnosis: Same Procedure(s) Performed: Percutaneous nephrostomy percutaneous nephrostolithotomy cystoscopy placement of ureteral catheter right Anesthesia: ADELITAA Surgeon: Filemon Ramirez Estimated Blood Loss (ml): 200 Pathology: other Condition: stable Disposition: PACU (Stone) Indications for Procedure: The patient is 59. She has a 2.2 cm right renal pelvic stone causing colic. She comes for right percutaneous nephrostolithotomy. Alternatives have been discussed. Complications have been discussed including infection bleeding pain failure to access the kidney failure remove the stone bleeding injury to the kid liv. Description of Procedure: Patient brought to the operating suite. On the transport gurney she was given a general anesthetic. She is placed in a frog position with a sterile prep and drape. Cystoscopy with Foroblique lens and 21 Djiboutian sheath identifies a normal urethra and bladder. The right trigone was identified and intubated with a 5 Djiboutian occluding balloon catheter passed up into the renal pelvis it is secured to a 16 Djib[place]ian [place] The patient is placed in a prone position with care Gaurang and extremities. A sterile prep is drape was administered. Right percutaneous access is created to a right middle pole calyx. It will be dictated separately. The tract is dilated to 30 Djib[place]ian. The sheath is introduced over the dilating balloon into the collecting system. The stone is seen after clot is removed. With ultrasound the stone was broken into several pieces and the largest of which are grasped and removed. I then passed the flexible scope throughout the collecting system. There is a small stone that dropped down the ureter that is basketed. At the end of the procedure a 10 Djib[place]ian J nephrostomy tube was placed in the renal pelvis its position confirmed fluoroscopically with contrast. It is secured to the skin. The patient is awakened and returned to recovery in good condition. Blood loss is approximately 200 mL. She will be placed in the hospital postoperatively.
--- NOTE | 2024-10-07 10:44 | P.PCN ---
Date of Procedure: 10/07/24 Preoperative Diagnosis: Right renal stone large,( 2.2 cm) Postoperative Diagnosis: Same Procedure(s) Performed: Percutaneous nephrostomy access right middle pole. Anesthesia: GETA Surgeon: Filemon Ramirez Indications for Procedure: Patient has a large, 2.2 cm right renal pelvic stone and comes for percutaneous nephrostolithotomy. I will do percutaneous access. Description of Procedure: Patient has been previously anesthetized. She is on the operating table in a prone position. Previously in occluding balloon catheters placed into the right renal pelvis. I injected air through the occluding balloon catheter to outline the right renal pelvis and collecting system. Posterior right middle pole calyx is identified. Chiba needle,21 Gauge I intubate the right middle pole calyx. I advanced the cope mandrel wire through the down the right ureter. I then remove the Chiba needle and over the wire I passed a 6 Marshallese dilating catheter into the ureter. I remove the inner catheter and passed a Super Stiff wire down the right ureter. I remove the 6 Marshallese catheter and passed an 8 and 10 Marshallese exchange catheter over the 035 Super Stiff wire. I then removed the 8 Marshallese catheter and passed a second wire down the ureter. Over the working wire then passed the nephrostomy tract dilating balloon and dilate the tract to 30 Marshallese should I can pass a working sheath into the right collecting system.
[2024-10-07] MEDS ORDERED: NALOXONE 0.4 MG/ML 1 ML VIAL IV PRN (11:18)
[2024-10-07] MEDS: droPERidol 5 MG/2 ML VIAL IVP ONE (11:49)
[2024-10-07] MEDS: HYDROmorphone PCA 10 MG/50 ML BAG IV PRN (12:40)
[2024-10-07] MEDS: ONDANSETRON 4 MG/2 ML VIAL IVP PRN (16:24)
[2024-10-07 16:43] VITALS: RESP 16
[2024-10-07] MEDS: DEXTROSE 5%-0.45% NACL 1,000 ML IV SCH (16:50)
[2024-10-08] MEDS: LEVOTHYROXINE 100 MCG TAB PO SCH (06:32)
[2024-10-08] MEDS: LEVOTHYROXINE 75 MCG TAB PO SCH (06:32)
[2024-10-08] MEDS: SERTRALINE 100 MG TAB PO SCH (07:43)
[2024-10-08] MEDS: ATORVASTATIN 10 MG TAB PO SCH (07:43)
[2024-10-08] MEDS: PANTOPRAZOLE 40 MG TABLET PO SCH (07:43)
[2024-10-08 11:14] VITALS: BP 118/61; PULSE 54; TEMP 98.5
--- NOTE | 2024-10-08 13:19 | P.DS ---
Providers Expected date of discharge: 10/08/24 Attending physician: Filemon Ramirez Primary care physician: [facility] Course: The patient underwent an uncomplicated right percutaneous nephrolithotomy in October 07, 2024. The perioperative course was unremarkable. She remained afebrile with stable vital signs. On the first postoperative day, she reported incisional discomfort but otherwise felt well. She was tolerating diet, without nausea. The nephrostomy tube was draining urine which was mildly bloody without clots. The Stock[place] catheter was draining clear yellow urine. The catheter was removed prior to discharge. Procedures: Right percutaneous nephrolithotomy on October 07, 2024. Patient Condition at Discharge: Good Plan - Discharge Summary Discharge Rx Participant: Yes New Discharge Prescriptions: New Ketorolac [Toradol] 10 mg PO Q6HR PRN #10 tab PRN Reason: Pain No Action Levothyroxine Sodium [Synthroid] 175 mcg PO QAM Ketorolac [Toradol] 10 mg PO Q8HR #15 tab Progesterone, Micronized [Progesterone] 200 mg PO HS Atorvastatin [Lipitor] 10 mg PO DAILY Sertraline HCl [Zoloft] 100 mg PO QAM Omeprazole [PriLOSEC] 10 mg PO QAM Multivitamins, Thera [Multivitamin (formulary)] 1 tab PO DAILY Ondansetron Odt [Zofran Odt] 4 mg PO Q8HR PRN #10 tab PRN Reason: Nausea estradioL [estradioL (Once Weekly) 0.05 mg Patch] 1 patch TRANSDERM WEEKLY L.acidoph,Paracasei, B.lactis [Probiotic] 1 tab PO DAILY Discharge Medication List Levothyroxine Sodium [Synthroid] 175 mcg PO QAM 07/21/21 [History] Multivitamins, Thera [Multivitamin (formulary)] 1 tab PO DAILY 07/21/21 [History] Omeprazole [PriLOSEC] 10 mg PO QAM 07/21/21 [History] Sertraline HCl [Zoloft] 100 mg PO QAM 07/21/21 [History] Ketorolac [Toradol] 10 mg PO Q8HR #15 tab 09/21/24 [Rx] Ondansetron Odt [Zofran Odt] 4 mg PO Q8HR PRN #10 tab 09/21/24 [Rx] L.acidoph,Paracasei, B.lactis [Probiotic] 1 tab PO DAILY 10/05/24 [History] Progesterone, Micronized [Progesterone] 200 mg PO HS 10/05/24 [History] estradioL [estradioL (Once Weekly) 0.05 mg Patch] 1 patch TRANSDERM WEEKLY 10/05/24 [History] Atorvastatin [Lipitor] 10 mg PO DAILY 10/07/24 [History] Ketorolac [Toradol] 10 mg PO Q6HR PRN #10 tab 10/08/24 [Rx] Follow up Appointment(s)/Referral(s): Filemon Ramirez MD [STAFF PHYSICIAN] - 10/12/24 Activity/Diet/Wound Care/Special Instructions: Discharge home with nephrostomy tube. Drink plenty of fluids. Avoid lifting or straining. Discharge Disposition: HOME SELF-CARE
== END 2024-10-08 14:02 | disposition home or self-care (01) ==
LOC: OR 06:49 → 4FBP 10:23 → OR 10-08 14:02
PROVIDERS: ATTEND Urology
DX: N20.0 Calculus of kidney (principal); K21.9 Gastro-esophageal reflux disease without esophagitis; M19.90 Unspecified osteoarthritis, unspecified site; Z85.41 Personal history of malignant neoplasm of cervix uteri; Z90.710 Acquired absence of both cervix and uterus; Z79.899 Other long term (current) drug therapy
CPT/HCPCS: 86900; 86901; 86850; 82365; 50432; 74018; 52281; C1769 ×3; C2628; C1894; C1729; J2250; J0330; J1100; J2710; J0690; J2405; J2003; J3010; J1171 ×2; J2704; Q9967; J2371; J1596

== ENCOUNTER → 2025-03-01 | Outpatient (CLI) | payer BC ==
--- NOTE | 2025-03-01 16:30 | MM ---
Reason for Exam: Screening (asymptomatic). Last mammogram was performed 1 year(s) and 1 month(s) ago. Patient History: Menarche at age 13. Patient has no children. Left ovary removed at age 44. Right ovary removed at age 58. Hysterectomy at age 58. Other cancer, age 26. Endometrial cancer, age 31. Patient used Hormonal Contraceptives for 15 years. 2013, Bilateral Implants. Mother had breast cancer, age 32. Risk Values: Elly 5 year model risk: 2.6%. NCI Lifetime model risk: 14.6%. Prior Study Comparison: 08/23/2021 Bilateral Screening Mammogram, [facility]. 12/11/2022 Bilateral MG 3D screen mammo imp/cad., [facility]. 01/20/2024 Bilateral MG screening mammo implant/CAD, [facility]. Tissue Density: The breasts are heterogeneously dense, which may obscure small masses. Findings: Analyzed By CAD. Bilateral retropectoral silicone implants redemonstrated. Subtle low density nodularity along the retroareolar plane right breast remains unchanged in the middle depth. Otherwise, other areas of asymmetric density are also unchanged. No persisting, suspicious abnormality on 3-D images. There is no suspicious group of microcalcifications or new suspicious mass in either breast. Overall Assessment: Benign, BI-RAD 2 Management: Screening Mammogram of both breasts in 1 year. Patient should continue monthly self-breast exams. A clinical breast exam by your physician is recommended on an annual basis. This exam should not preclude additional follow-up of suspicious palpable abnormalities. Note on Elly scores and lifetime risk: 1. A Elly score greater than 3% is considered moderate risk. If this is the case, consider specialist referral to assess eligibility for a risk reducing agent. 2. If overall lifetime risk for the development of breast cancer is 20% or higher, the patient may qualify for future screening with alternating mammogram and breast MRI. [facility], , 03/01/2025 4:26 PM. Electronically signed and approved by: Joann Armando M.D. Radiologist
== END | disposition home or self-care (01) ==
LOC: RADMAMWWP 15:36
PROVIDERS: ATTEND Obstetrics & Gynecology
DX: Z12.31 Encounter for screening mammogram for malignant neoplasm of breast (principal); R92.333 Mammographic heterogeneous density, bilateral breasts; Z80.3 Family history of malignant neoplasm of breast; Z92.0 Personal history of contraception
CPT/HCPCS: 77063; 77067